=== PATIENT | female | born 2005 | race Caucasian/White ===

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

== ENCOUNTER → 2025-02-09 | Outpatient (CLI) | payer OTHER, MEDICAID ==
[~2025-02-09] MED LIST changes: -VITA100T14 PO; +VITA100T69 PO
== END ==
LOC: M LAB 13:11
PROVIDERS: ATTEND Pediatrics
DX: Z11.1 Encounter for screening for respiratory tuberculosis (principal)

== ENCOUNTER → 2025-02-21 | Outpatient (CLI) | payer OTHER, MEDICAID | LOC: M RAD 15:16 | PROVIDERS: ATTEND Student in an Organized Health Care Education/Training Program | DX: Z87.01 Personal history of pneumonia (recurrent) (principal); R91.8 Other nonspecific abnormal finding of lung field ==